=== PATIENT | female | born 2000 | race Caucasian/White ===

== ENCOUNTER 2018-08-22 17:52 | Emergency (ER) | payer BC ==
--- NOTE | 2018-08-22 18:19 | EDPHY ---
H & P Stated Complaint: Lower abdominal pain since yesterday. Time Seen by Provider: 08/22/18 18:08 HPI/ROS: CHIEF COMPLAINT: Lower abdominal pain HISTORY OF PRESENT ILLNESS: This is a healthy 17-year-old female who had the abrupt onset of lower abdominal pain during a 4 mi run yesterday afternoon. When the pain beganit was accompanied by nausea. She had one bout of vomiting. She had an urge to defecate but did not do so. She has not had diarrhea. No dysuria. No urgency or frequency. She denies flank pain. She has not had fever. She ate an hour and half ago. No anorexia. She takes control pills for cramps. She is not and never has been sexually active. No vaginal discharge. REVIEW OF SYSTEMS: A ten system review of systems was performed and is negative with the exception of the items mentioned in the HPI. Past medical history: Negative Past surgical history: 1. Tonsillectomy 2. Hand fracture with pinning Social history: She is a student at the [employer]. She does not use tobacco products. General Appearance: Alert. Vital signs reviewed. Blood pressure 128/80 at triage. Eyes: Pupils equal and round, no conjunctival injection, no discharge. Anicteric. ENT, Mouth: Mucous membranes are moist, no oropharyngeal erythema or edema. Neck: No lymphadenopathy, supple. Respiratory: Lungs are clear to auscultation; no wheezes, rales, or rhonchi. Cardiovascular: Regular rate and rhythm; no murmur, rub, or gallop. Gastrointestinal: Abdomen is soft with mild right lower quadrant tenderness, no guarding, no masses or organomegaly, bowel sounds normal. Skin: Warm and dry, no rashes on exposed skin, normal color. Back: Nontender to palpation over the thoracolumbar spine. No CVAT. Extremities: No lower extremity edema, no calf tenderness or swelling. Neurological: Alert and oriented. Moving all four extremities easily and equally. Psychiatric: Normal affect. - Personal History LMP (Females 10-55): 1-7 Days Ago Current Tetanus Diphtheria and Acellular Pertussis (TDAP): Yes - Medical/Surgical History Hx Asthma: No Hx Chronic Respiratory Disease: No Hx Diabetes: No Hx Cardiac Disease: No Hx Renal Disease: No Hx Cirrhosis: No Hx Alcoholism: No Hx HIV/AIDS: No Hx Splenectomy or Spleen Trauma: No Other PMH: Denies - Social History Smoking Status: Never smoked Constitutional: Initial Vital Signs Temperature (C) 36.5 C 08/22/18 18:00 Heart Rate 81 08/22/18 18:00 Respiratory Rate 18 08/22/18 18:00 Blood Pressure 128/80 H 08/22/18 18:00 O2 Sat (%) 95 08/22/18 18:00 O2 Delivery Mode Room Air Allergies/Adverse Reactions: No Known Allergies Allergy (Unverified 08/22/18 18:03) Medical Decision Making ED Course/Re-evaluation: CBC normal. I doubt that this is appendicitis. Her her pain is minimal to moderate, no guarding or rebound. She has not had fever or vomiting. Pain began yesterday and I would expect appendicitis to have declared itself by now. Urinalysis without evidence of infection. She has no CVA tenderness and I do not suspect pyelonephritis. She is not sexually active so PID is not in my differential. test is negative, ectopic not a consideration. Will check ultrasound to assess ovaries for torsion or ruptured cyst. Pelvic ultrasound reported to me as WNL> There is a possibly a very small amount of free fluid that could represent rupture of a follicular cyst. No evidence of torsion. I have discussed all of this with the patient and she is comfortable returning home. We reviewed the danger signs that should prompt her to be re-evaluated. If she is not improving she will follow up at [facility]. I am recommending ibuprofen. - Data Points Laboratory Results: Laboratory Results 08/22/18 18:15 Medications Given: Discontinued Medications Sodium Chloride (Ns) 1,000 mls @ 0 mls/hr IV EDNOW ONE; Wide Open PRN Reason: Protocol Stop: 08/22/18 19:14 Last Admin: 08/22/18 19:15 Dose: 1,000 mls Departure - Departure Disposition: Home, Routine, Self-Care Clinical Impression: Abdominal pain Qualifiers: Abdominal location: right lower quadrant Qualified Code(s): R10.31 - Right lower quadrant pain Condition: Good Instructions: Acute Abdominal Pain (ED) Additional Instructions: As you know, we have not discovered a cause for your abdominal pain. I recommend ibuprofen 400 mg every 6 hr while awake. Take this with some food. You're not improving you should be re-evaluated at [facility]. If you are worse in any way--fever, vomiting, diarrhea, worsening pain--you should return to the emergency department. Referrals: KATHIE ANDREWS [Other] - As per Instructions BERNIE White,. [Clinic] - As per Instructions
[2018-08-22 18:31] LABS: PLATELET COUNT 323 10^3/uL (150-400)
[2018-08-22] MEDS ORDERED: NS 1,000 ML IV ONE (19:13)
[2018-08-22 20:36] VITALS: BP 101/64
== END 2018-08-22 20:36 | disposition home or self-care (01) ==
DX: R10.30 Lower abdominal pain, unspecified (principal)